=== PATIENT | male | born 1945 | race Caucasian/White ===

== ENCOUNTER 2024-01-15 19:26 | Emergency (ER) | payer MEDICARE, SELFPAY ==
[2024-01-15 19:37] VITALS: BP 115/60; BP 118/68; PULSE 78; PULSE 82; RESP 20; TEMP 36.8; O2SAT 94; BMI 24.4
[2024-01-15 19:51] VITALS: BP 121/55; PULSE 73
--- NOTE | 2024-01-15 19:52 | ECG_ITS ---
Test Reason : NEAR-SYNCOPE Blood Pressure : / mmHG Vent. Rate : 081 BPM Atrial Rate : 081 BPM P-R Int : 146 ms QRS Dur : 074 ms QT Int : 360 ms P-R-T Axes : 062 007 055 degrees QTc Int : 418 ms Normal sinus rhythm Normal ECG When compared with ECG of 27-FEB-2011 19:13, Nonspecific T wave abnormality now evident in Lateral leads Referred By: Shweta Allred Electronically Signed By:Kyle Campo
[2024-01-15] MEDS: 0.9 % Sodium Chloride 1,000 ML 999 ML IV (20:30)
[2024-01-15 20:54] VITALS: BP 115/53; PULSE 77
[2024-01-15 20:54] LABS: MANUAL DIFF FLAG NO
[2024-01-15 20:55] LABS: Basophils Percent Auto 0.4 % (0-2); Eosinophils Percent Auto 0.4 % (0-4); Hematocrit 37.3 % (42.0-52.0); Hemoglobin 12.9 g/dl (14.0-18.0); Imm Gran Abs Auto 0.15 X10*3/uL (0.00-0.03); Imm Gran Pct Auto 1.8 % (0.0-0.4); Lymphocytes Absolute Auto 1.8 X10*3/uL (1.2-4.9); Lymphocytes Percent Auto 22.4 % (20-40); Mean Corpuscular HGB Conc 34.6 g/dl (31.0-36.0); Mean Corpuscular Hemoglobin 33.3 pg (27.0-33.0); Mean Corpuscular Volume 96.4 fL (80.0-98.0); Mean Platelet Volume 9.5 fL (9.4-12.4); Monocytes Absolute Auto 0.9 X10*3/uL (0.1-1.2); Monocytes Percent Auto 10.5 % (2-11); Neutrophils Absolute Auto 5.3 x10*3/uL (2.0-8.3); Neutrophils Percent Auto 64.5 % (45-73); Platelet Count 211 X10*3/uL (160-400); Red Blood Count 3.87 X10*6/uL (4.60-5.80); Red Cell Distribution Width 14.6 % (11.0-16.0); White Blood Count 8.2 X10*3/uL (4.8-10.8)
[2024-01-15 20:57] VITALS: BP 119/55; PULSE 83
[2024-01-15 21:10] LABS: Alanine Aminotransferase 23 U/L (0-40); Albumin Level 3.4 g/dL (3.5-5.0); Alkaline Phosphatase 62 U/L (39-117); Anion Gap 11 (12-20); Aspartate Amino Transferase 17 U/L (5-37); Bilirubin Total 0.4 mg/dL (0.0-1.0); Blood Urea Nitrogen 22 mg/dL (9-16); Calcium 8.9 mg/dL (8.4-10.2); Carbon Dioxide 27 mmol/L (22-29); Chloride 107 mmol/L (96-108); Creatinine Clr Calc Pharmacy 72.2; Estimated Glomerular Filt Rate > 60; Glucose Random 87 mg/dL (60-115); Potassium 4.4 mmol/L (3.3-5.1); Sodium 141 mmol/L (135-145); Total Protein 5.7 g/dL (6.5-8.0)
[2024-01-15 21:17] LABS: Troponin-I High Sensitivity 13.7 ng/L (<3.5-35.0)
[2024-01-15 21:19] LABS: COVID-19 Test Positive (Negative); IDNOW Serial# 08D9AD1C
--- NOTE | 2024-01-15 21:29 | ED.SYNCOPE ---
HPI - Syncope General Chief Complaint: Dizziness Stated Complaint: Near syncope Time Seen by Provider: 01/15/24 19:50 Source: patient Mode of arrival: ambulatory History of Present Illness ED Provider: Dr Allred HPI narrative: 78-year-old male who states that he did not drink much water today, drank some wine, also reports positive COVID exposure in his grandkids and states that this evening he went to stand up from the dining room table felt very lightheaded, almost passed out with a lot of sweating, nausea cool and clammy skin. Related Data Allergies Allergy/AdvReac Type Severity Reaction Status Date / Time gluten [GLUTEN] Allergy Unknown STOMACH Verified 01/15/24 19:45 UPSET Review of Systems Review of Systems: Pertinent positives and negatives as stated in [facility] Past Medical History Source: nursing notes reviewed Physical Exam Vital Signs: Vital Signs: Last Vital Signs Temp 98.3 F 01/15/24 19:37 Pulse 83 01/15/24 20:57 Resp 20 01/15/24 19:37 BP 119/55 L 01/15/24 20:57 Pulse Ox 94 01/15/24 19:37 O2 Del Method Room Air 01/15/24 19:37 BMI result Body Mass Index 24.4 VITAL SIGNS: Reviewed. GENERAL: Well developed, well nourished, in no acute distress. HEAD: Normocephalic/atraumatic EYES: PERRLA, EOMI EARS: Ext canals without abnormality NOSE: Nares patent bilateral OROPHARYNX: no oral lesions noted, posterior pharynx clear NECK: Supple, no adenopathy LUNGS: Normal breath sounds. No adventitious sounds or accessory muscle use. SpO2<94> CARDIOVASCULAR: Regular rate and rhythm without noted murmurs, no JVD or lower extremity edema. ABDOMEN: Soft, non-tender, non-distended with bowel sounds. MUSCULOSKELETAL: No tenderness, deformities, or effusions noted on gross inspection. EXTREMITIES: No cyanosis, clubbing or edema. SKIN: Inspection of the skin reveals no rashes NEUROLOGIC: Alert and oriented x 4. Strength and sensation to light touch were grossly intact x 4. Medications Administered Discontinued Medications Generic Name Dose Route Start Last Admin Trade Name Freq PRN Reason Stop Dose Admin Sodium Chloride 1,000 mls @ 999 mls/hr 01/15/24 20:00 01/15/24 20:30 Ns IV 01/15/24 21:00 999 mls/hr .Q1H1M TRACEY Administration Medical Decision Making Medical Decision Making [facility] Narrative: 78-year-old male with history and clinical presentation, DDX: Near syncope secondary to infection/dehydration, low clinical suspicion for cardiac in etiology or electrolyte derangements. Patient is feeling improved at this time. I reviewed all investigations and hematologic indices are negative for leukocytosis and patient has a normocytic anemia without any history or endorsement of active bleeding, there is no thrombocytopenia. Chemistry indices negative for SUNNY/electrolyte or liver enzyme derangements. Viral testing positive for COVID-19. Orthostatics are negative. My interpretation is patient had a near syncopal episode secondary to underlying viral infection with COVID-19, likely low level fever in conjunction with alcohol/NyQuil and inadequate hydration. He has received IV fluids here in the emergency room, states he is feeling improved and is otherwise stable for discharge. Differential Diagnosis Differential Diagnoses: The differential diagnosis associated with the presentation includes Please see the discussion above Admission/Observation Consideration of admission/observation: Escalation of care including admission/observation considered Please see the discussion above Lab Data [facility] Lab Attestation statement: I reviewed the patient's lab results. Please see the discussion above 01/15/24 20:42 01/15/24 20:42 Labs: Lab Results 01/15/24 Range/Units 20:42 WBC 8.2 (4.8-10.8) X10*3/uL RBC 3.87 L (4.60-5.80) X10*6/uL Hgb 12.9 L (14.0-18.0) g/dl Hct 37.3 L (42.0-52.0) % MCV 96.4 (80.0-98.0) fL MCH 33.3 H (27.0-33.0) pg MCHC 34.6 (31.0-36.0) g/dl RDW 14.6 (11.0-16.0) % Plt Count 211 (160-400) X10*3/uL MPV 9.5 (9.4-12.4) fL Immature Gran % (Auto) 1.8 H (0.0-0.4) % Neut % (Auto) 64.5 (45-73) % Lymph % (Auto) 22.4 (20-40) % [place] % (Auto) 10.5 (2-11) % Eos % (Auto) 0.4 (0-4) % Baso % (Auto) 0.4 (0-2) % Lymph # (Auto) 1.8 (1.2-4.9) X10*3/uL [place] # (Auto) 0.9 (0.1-1.2) X10*3/uL Eos # (Auto) 0.0 (0.0-0.4) X10*3/uL Baso # (Auto) 0.0 (0.0-0.2) X10*3/uL Abs Immat Gran (auto) 0.15 H (0.00-0.03) X10*3/uL Absolute Neuts (auto) 5.3 (2.0-8.3) x10*3/uL Absolute Nucleated RBC 0.000 (0.0-0.012) X10*3/uL Nucleated RBC % (auto) 0.0 (0.0-0.2) /100WBC Sodium 141 (135-145) mmol/L Potassium 4.4 (3.3-5.1) mmol/L Chloride 107 (96-108) mmol/L Carbon Dioxide 27 (22-29) mmol/L Anion Gap 11 L (12-20) BUN 22 H (9-16) mg/dL Creatinine 0.87 (0.5-1.4) mg/dL Estim Creat Clear Calc 72.2 Estimated GFR > 60 Random Glucose 87 (60-115) mg/dL Calcium 8.9 (8.4-10.2) mg/dL Total Bilirubin 0.4 (0.0-1.0) mg/dL AST 17 (5-37) U/L ALT 23 (0-40) U/L Alkaline Phosphatase 62 (39-117) U/L Troponin I High Sens 13.7 (<3.5-35.0) ng/L Total Protein 5.7 L (6.5-8.0) g/dL Albumin 3.4 L (3.5-5.0) g/dL COVID-19 ([facility]) Positive A (Negative) COVID-19 Clin Com See Note Independent Interpretation I performed an independent interpretation of an: EKG Interpretation: Normal sinus rhythm, HR-81, no STEMI, CT/QRS/QTC is within normal limits. Critical Care Time Critical Care Time Critical Care Time: Yes Total Critical Care Time: 30 Attestation: I personally attest to this time spent taking care of the patient. Discharge Plan Discharge Clinical Impression: Lab test positive for detection of COVID-19 virus, Vasovagal near-syncope, Dehydration Patient Disposition: Home, Self-Care Instructions: COVID-19 (Coronavirus Disease 2019) (ED), Near Syncope (ED), Dehydration (ED) Additional Instructions: 1. Recommend [id number] Tylenol/ibuprofen as needed for any elevated temperatures or body aches, continue to stay well hydrated. 2. You have been diagnosed with COVID-19 and should get adequate rest. Please follow-up with your primary care doctor. Return to the ER for any worsening symptoms.
[2024-01-15] MEDS: Acetaminophen 325 MG TABLET 975 MG PO (21:52)
[2024-01-15 21:54] VITALS: BP 108/54; PULSE 84; RESP 18; TEMP 36.9; O2SAT 98
[2024-01-15 22:09] VITALS: BP 108/54; PULSE 84; RESP 18; TEMP 36.9; O2SAT 98
== END 2024-01-15 22:09 | disposition home or self-care (01) ==
LOC: HO.ED 21:58
PROVIDERS: Emergency Provider Student in an Organized Health Care Education/Training Program; PCP Family Medicine
DX: U07.1 COVID-19 (principal); R55 Syncope and collapse; E86.0 Dehydration; R42 Dizziness and giddiness
CPT/HCPCS: 36415; 80053; 84484; 85025; 87635; 93005; 96360; 99284

== ENCOUNTER → 2024-01-15 19:52 | Outpatient (BNV) | payer MEDICARE, SELFPAY | PROVIDERS: Emergency Provider Student in an Organized Health Care Education/Training Program; PCP Family Medicine; Visit Provider Internal Medicine Cardiovascular Disease | DX: R55 Syncope and collapse (principal) | CPT/HCPCS: 93010 ==